=== PATIENT | male | born 1950 | race Caucasian/White ===

== ENCOUNTER 2019-01-22 13:10 | Emergency (ER) | payer OTHER ==
[~2019-01-22] VITALS: Ht 185.4 cm; Wt 79.4 kg
[~2019-01-22 13:10] MED LIST: BLOO-200 XX; DOCU100C8 PO; FINA5TAB4 PO; GLIP5TAB12 PO; LEVO500T21 PO; METF-370 PO; TAM04C PO
[2019-01-22 13:27] VITALS: BP 154/96
== END 2019-01-22 16:08 | disposition home or self-care (01) ==
LOC: ER 13:14
DX: N39.0 Urinary tract infection, site not specified (principal); Z46.6 Encounter for fitting and adjustment of urinary device
CPT/HCPCS: 81002